=== PATIENT | male | born 1965 | race African-American/Black ===

== ENCOUNTER 2016-06-11 11:48 | Observation (INO) | payer OTHER ==
--- NOTE | 2016-06-11 12:22 | CPEKG ---
Heart Rate: 67 RR Interval: 896 P-R Interval: 172 QRSD Interval: 94 QT Interval: 364 QTC Interval: 385 P [place]: 56 QRS [place]: -34 T Wave [place]: 13 EKG Severity - ABNORMAL ECG - EKG Impression: SINUS RHYTHM EKG Impression: LEFT AXIS DEVIATION EKG Impression: ANTERIOR INFARCT, OLD Electronically Signed By: Shima Branham 11-Jun-2016 14:37:56
[2016-06-11 12:56] LABS: ADD DIFF? NO; ADD MORPH? NO; ADD SCAN? NO; ATYPICAL LYMPHOCYTE FLAG 0 (0-99); FRAGMENT RBC FLAG 0 (0-99); HEMATOCRIT 46.2 % (40.0-51.0); HEMOGLOBIN 15.2 g/dL (13.7-17.5); LEFT SHIFT FLG 0 (0-99); LIPEMIA HEMOLYSIS FLAG 80 (0-99); MEAN CELL HEMOGLOBIN 29.6 pg (27.9-34.1); MEAN CELL HEMOGLOBIN CONCENTR. 32.9 g/dL (32.4-36.7); MEAN CELL VOLUME 90.1 fL (81.5-99.8); MEAN PLATELET VOLUME 9.9 fL (8.7-11.7); PLATELET CLUMPS FLAG 0 (0-99); PLATELET COUNT 242 10^3/uL (150-400); RED BLOOD CELL COUNT 5.13 10^6/uL (4.40-6.38); RED CELL DISTRIBUTION WIDTH 12.5 % (11.5-15.2)
[2016-06-11 13:04] LABS: ANION GAP 13 mEq/L (8-16); CALCIUM 10.3 mg/dL (8.5-10.4); CARBON DIOXIDE 27 mEq/l (22-31); CHLORIDE 103 mEq/L (97-110); CREATININE 1.3 mg/dL (0.7-1.3); GLOMERULAR FILTRATION RATE 58; GLUCOSE 92 mg/dL (70-100); POTASSIUM 4.2 mEq/L (3.5-5.2); SODIUM 143 mEq/L (134-144)
[2016-06-11 13:14] LABS: TROPONIN I < 0.012 ng/mL (0-0.034)
--- NOTE | 2016-06-11 13:15 | EDPHY ---
H & P Time Seen by Provider: 06/11/16 12:21 HPI/ROS: CHIEF COMPLAINT: Left-sided chest pain HISTORY OF PRESENT ILLNESS: 51-year-old male presents with left-sided chest pain. Onset chest pain and 11:00 a.m. while he was sitting in court. Pain is moderate and increases with deep inspiration. Associated with shortness of breath and diaphoresis. Nitroglycerin x1 without relief. Prior treadmill test reportedly abnormal. He has a 3 year history of intermittent chest pain, diagnosed as angina at the custodial. He usually takes nitroglycerin, which occasionally helps the pain. Prior trials of Zantac have not helped. He has 2- 3 episodes of chest pain every month. The chest pain tends to occur randomly and not especially with exertion. Cardiac risk factors negative. Nonsmoker; no family history; no hypertension, diabetes or hypercholesterolemia. REVIEW OF SYSTEMS: Constitutional: No fever, no chills Eyes: No visual changes ENT: No sore throat Respiratory: No cough, no shortness of breath Gastrointestinal: No nausea, no vomiting, no abdominal pain Genitourinary: no dysuria Musculoskeletal: No leg pain or swelling Skin: No rash Neurological: No headache, no weakness Psychiatric: No depression Past Medical/Surgical History: Angina Social History: in custodial for 3 years Smoking Status: Never smoked Physical Exam: General Appearance: Alert, calm and cooperative Eyes: Pupils equal and round, no conjunctival pallor or injection ENT, Mouth: Mucous membranes moist Neck: Normal inspection Respiratory: no chest wall tenderness, Lungs are clear to auscultation Cardiovascular: Regular rate and rhythm Gastrointestinal: Abdomen is soft and nontender Neurological: A&O, nonfocal, normal gait Skin: Warm and dry, no rash Extremities: Nontender, no pedal edema Psychiatric: Mood and affect normal Constitutional: Initial Vital Signs Temperature (C) 36.6 C 06/11/16 11:55 Heart Rate 80 06/11/16 11:55 Respiratory Rate 18 06/11/16 11:55 Blood Pressure 144/79 H 06/11/16 11:55 O2 Sat (%) 98 06/11/16 11:55 O2 Delivery Mode Room Air Allergies/Adverse Reactions: No Known Allergies Allergy (Unverified 06/11/16 11:54) Home Medications: Medication Instructions Recorded Nitroglycerin [Nitrostat 0.4 mg 0.4 mg SL Q5M PRN 06/11/16 (*)] Medical Decision Making - Diagnostics EKG Interpretation: EKG interpreted by me reveals normal sinus rhythm, rate 67, slurred upstroke of QRS c/w WPW, poor R-wave progression. ED Course/Re-evaluation: This patient presents with ongoing chest pain, without prior diagnosis of angina. It is unclear whether he actually has true cardiac disease or not. Evaluation in the emergency department is normal, including EKG and initial troponin. Given that his pain started 2 hours ago, I will admit him to the [facility] for further cardiac evaluation. I gave him a GI cocktail which alleviated the pain partially. The hospitalist service was consulted for admission. Differential Diagnosis: Differential diagnosis includes though it is not limited to pneumonia, pneumothorax, pulmonary embolism, aortic dissection, pericarditis, acute coronary syndrome. - Data Points Laboratory Results: Laboratory Results 06/11/16 11:53 06/11/16 11:53 06/11/16 06/11/16 06/11/16 13:18 11:53 11:53 WBC 4.51 10^3/uL 10^3/uL (3.80-9.50) RBC 5.13 10^6/uL 10^6/uL (4.40-6.38) Hgb 15.2 g/dL g/dL (13.7-17.5) Hct 46.2 % % (40.0-51.0) MCV 90.1 fL fL (81.5-99.8) MCH 29.6 pg pg (27.9-34.1) MCHC 32.9 g/dL g/dL (32.4-36.7) RDW 12.5 % % (11.5-15.2) Plt Count 242 10^3/uL 10^3/uL (150-400) MPV 9.9 fL fL (8.7-11.7) Neut % (Auto) 53.9 % % (39.3-74.2) Lymph % (Auto) 37.9 % % (15.0-45.0) [place] % (Auto) 7.8 % % (4.5-13.0) Eos % (Auto) 0.0 % L % (0.6-7.6) Baso % (Auto) 0.4 % % (0.3-1.7) Nucleat RBC Rel Count 0.0 % % (0.0-0.2) Absolute Neuts (auto) 2.43 10^3/uL 10^3/uL (1.70-6.50) Absolute Lymphs (auto) 1.71 10^3/uL 10^3/uL (1.00-3.00) Absolute Monos (auto) 0.35 10^3/uL 10^3/uL (0.30-0.80) Absolute Eos (auto) 0.00 10^3/uL L 10^3/uL (0.03-0.40) Absolute Basos (auto) 0.02 10^3/uL 10^3/uL (0.02-0.10) Absolute Nucleated RBC 0.00 10^3/uL 10^3/uL (0-0.01) Immature Gran % 0.0 % % (0.0-1.1) Immature Gran # 0.00 10^3/uL 10^3/uL (0.00-0.10) D-Dimer 0.27 ug/mLFEU ug/mLFEU (0.00-0.50) Sodium 143 mEq/L mEq/L (134-144) Potassium 4.2 mEq/L mEq/L (3.5-5.2) Chloride 103 mEq/L mEq/L (97-110) Carbon Dioxide 27 mEq/l mEq/l (22-31) Anion Gap 13 mEq/L mEq/L (8-16) BUN 8 mg/dL mg/dL (7-23) Creatinine 1.3 mg/dL mg/dL (0.7-1.3) Estimated GFR 58 Glucose 92 mg/dL mg/dL (70-100) Calcium 10.3 mg/dL mg/dL (8.5-10.4) Troponin I < 0.012 ng/mL ng/mL (0-0.034) NT-Pro-B Natriuret Pep < 11 pg/mL pg/mL (0-125) Lipase 06/11/16 11:30 WBC RBC Hgb Hct MCV MCH MCHC RDW Plt Count MPV Neut % (Auto) Lymph % (Auto) [place] % (Auto) Eos % (Auto) Baso % (Auto) Nucleat RBC Rel Count Absolute Neuts (auto) Absolute Lymphs (auto) Absolute Monos (auto) Absolute Eos (auto) Absolute Basos (auto) Absolute Nucleated RBC Immature Gran % Immature Gran # D-Dimer Sodium Potassium Chloride Carbon Dioxide Anion Gap BUN Creatinine Estimated GFR Glucose Calcium Troponin I NT-Pro-B Natriuret Pep Lipase 89.0 IU/L IU/L (23-300) Medications Given: Discontinued Medications Miscellaneous Medication (Gi Cocktail) 45 ml PO EDNOW ONE Stop: 06/11/16 13:18 Last Admin: 06/11/16 13:40 Dose: 45 ml Departure - Departure Disposition: [facility] Inpatient Acute Clinical Impression: Chest pain Qualifiers: Chest pain type: precordial pain Qualified Code(s): R07.2 - Precordial pain Condition: Good
[2016-06-11] MEDS ORDERED: MAALOX/LIDO/HYOSC GI COCKTAIL 55 ML BOTTLE PO ONE (13:17)
[2016-06-11 14:40] VITALS: BP 121/68; PULSE 76; O2SAT 96
[2016-06-11 14:41] VITALS: RESP 20; TEMP 97.9
[2016-06-11] MEDS ORDERED: NITROGLYCERIN 0.4 MG BTL SL PRN (15:00)
--- NOTE | 2016-06-11 15:07 | PDCPHP ---
History and Physical Chief Complaint: Chest pain - History of Present Illness This is a 51-year-old incarcerated male who presented to the emergency department today with chest pain that began abruptly at around 11:30 a.m. this morning. He was at court this morning when he was sitting down and developed what he describes as a 9/10 sharp stabbing pain over his left chest that radiated to his back. Pain lasted for about 2 hours then resolved. He was given nitroglycerin without improvement. He was given a GI cocktail which he thinks helped. He tells me that the pain is somewhat improved with applying direct pressure to his anterior chest. He denies any exertional chest pain. Pain is also worse with taking deep breaths. He denies any symptoms of reflux. He tells me that he had a treadmill stress test done in 12 below few years ago that was abnormal. Further workup was recommended but has not yet been done. He was given a prescription for nitroglycerin that he takes occasionally for this pain that does not help. He reports having episodes of similar pain a couple times a month. He was recently started on Zantac which she has been taking which has not decreased the number of episodes of his pain. History Information - Allergies/Home Medication List Allergies/Adverse Reactions: No Known Allergies Allergy (Unverified 06/11/16 11:54) Home Medications: Nitroglycerin [Nitrostat 0.4 mg (*)] 0.4 mg SL Q5M PRN 06/11/16 [Last Taken Unknown] I have personally reviewed and updated: family history, medical history, social history, surgical history - Past Medical History no pertinent PMH - Surgical History Reports: no pertinent surgical hx - Family History Positive for: hypertension ( mother from high blood pressure) - Social History Smoking Status: Never smoked Alcohol Use: None Drug Use: None Review of Systems ROS: 10pt was reviewed & negative except for what was stated in HPI & below GEOFFREY Risk Evaluation age greater or equal to 65: no greater or equal to 3 CAD risk factors: no known CAD(stenosis greater or eqaul to 50%): no ASA use in past 7 days: no severe angina(greater or equal to 2 episodes in 24hrs): no EKG ST changes greater or equal to 0.5mm: no positive cardiac marker: no Total Score: 0 GEOFFREY Score: 4.7% risk Physical Exam Temp Pulse Resp BP Pulse Ox 36.6 C 76 20 121/68 H 96 06/11/16 14:40 06/11/16 14:40 06/11/16 14:40 06/11/16 14:40 06/11/16 14:40 Constitutional: no apparent distress, appears nourished, not in pain Eyes: PERRL, anicteric sclera, EOMI Ears, Nose, Mouth, Throat: moist mucous membranes, hearing normal, ears appear normal, no oral mucosal ulcers Cardiovascular: regular rate and rhythym, no murmur, rub, or gallop, other ( mild tenderness to palpation over the left anterior chest wall), No JVD, No edema Respiratory: no respiratory distress, no rales or rhonchi, clear to auscultation Gastrointestinal: normoactive bowel sounds, soft, non-tender abdomen, no palpable masses, No black's sign, No guarding, No rebound Genitourinary: no bladder fullness, no bladder tenderness Skin: warm, normal color, no rashes or abrasions, no fluctuance, no induration, No mottled Musculoskeletal: full muscle strength, no muscle tenderness, normal joint ROM, no joint effusions Neurologic: AAOx3, CN II-XII Intact, No facial droop Psychiatric: interacting appropriately, not anxious, not encephalopathic, thought process linear Lab Data & Imaging Review 06/11/16 11:53 06/11/16 11:53 WBC 4.51 10^3/uL (3.80-9.50) 06/11/16 11:53 RBC 5.13 10^6/uL (4.40-6.38) 06/11/16 11:53 Hgb 15.2 g/dL (13.7-17.5) 06/11/16 11:53 Hct 46.2 % (40.0-51.0) 06/11/16 11:53 MCV 90.1 fL (81.5-99.8) 06/11/16 11:53 MCH 29.6 pg (27.9-34.1) 06/11/16 11:53 MCHC 32.9 g/dL (32.4-36.7) 06/11/16 11:53 RDW 12.5 % (11.5-15.2) 06/11/16 11:53 Plt Count 242 10^3/uL (150-400) 06/11/16 11:53 MPV 9.9 fL (8.7-11.7) 06/11/16 11:53 Neut % (Auto) 53.9 % (39.3-74.2) 06/11/16 11:53 Lymph % (Auto) 37.9 % (15.0-45.0) 06/11/16 11:53 [place] % (Auto) 7.8 % (4.5-13.0) 06/11/16 11:53 Eos % (Auto) 0.0 % (0.6-7.6) L 06/11/16 11:53 Baso % (Auto) 0.4 % (0.3-1.7) 06/11/16 11:53 Nucleat RBC Rel Count 0.0 % (0.0-0.2) 06/11/16 11:53 Absolute Neuts (auto) 2.43 10^3/uL (1.70-6.50) 06/11/16 11:53 Absolute Lymphs (auto) 1.71 10^3/uL (1.00-3.00) 06/11/16 11:53 Absolute Monos (auto) 0.35 10^3/uL (0.30-0.80) 06/11/16 11:53 Absolute Eos (auto) 0.00 10^3/uL (0.03-0.40) L 06/11/16 11:53 Absolute Basos (auto) 0.02 10^3/uL (0.02-0.10) 06/11/16 11:53 Absolute Nucleated RBC 0.00 10^3/uL (0-0.01) 06/11/16 11:53 Immature Gran % 0.0 % (0.0-1.1) 06/11/16 11:53 Immature Gran # 0.00 10^3/uL (0.00-0.10) 06/11/16 11:53 D-Dimer 0.27 ug/mLFEU (0.00-0.50) 06/11/16 13:18 Sodium 143 mEq/L (134-144) 06/11/16 11:53 Potassium 4.2 mEq/L (3.5-5.2) 06/11/16 11:53 Chloride 103 mEq/L (97-110) 06/11/16 11:53 Carbon Dioxide 27 mEq/l (22-31) 06/11/16 11:53 Anion Gap 13 mEq/L (8-16) 06/11/16 11:53 BUN 8 mg/dL (7-23) 06/11/16 11:53 Creatinine 1.3 mg/dL (0.7-1.3) 06/11/16 11:53 Estimated GFR 58 06/11/16 11:53 Glucose 92 mg/dL (70-100) 06/11/16 11:53 Calcium 10.3 mg/dL (8.5-10.4) 06/11/16 11:53 Troponin I < 0.012 ng/mL (0-0.034) 06/11/16 11:53 NT-Pro-B Natriuret Pep < 11 pg/mL (0-125) 06/11/16 11:53 Lipase 89.0 IU/L (23-300) 06/11/16 11:30 Visualized and Interpreted Chest x-ray results: Yes Chest X-Ray results: no infiltrate, normal, normal heart size Visualized and Interpreted EKG results: Yes EKG Interpretation: Positive for: normal sinsus rhythm ( 67 beats per minute), Q waves ( anterior leads). Negative for: ST elevation, ST depression Assessment and Plan Assessment: This is a 51 year old male presenting with chest pain at low risk ( GEOFFREY 0-1) for Acute coronary syndrome. differential diagnosis: Costochondritis versus GERD versus esophageal spasm versus biliary disease versus less likely ACS with reported history of abnormal stress test and q waves on ekg Plan: The patient will be placed in observation due to concerns for Acute Coronary Syndrome. -repeat 6 hour troponin -echo to eval for evidence of prior NH given q waves on ekg -check lfts for evidence of biliary pathology plan -possible dc later today if 6 hour troponin is negative -if echo shows evidence of prior NH would recommend inpatient [facility] given reported history of abnormal treadmill stress test -trial PPI -consider repeat GI cocktail -consider outpatient upper GI to eval for esophageal pathology causing symptoms
[2016-06-11] MEDS ORDERED: ASPIRIN 325 MG TAB PO SCH (15:30)
[2016-06-11] MEDS ORDERED: PANTOPRAZOLE SODIUM 40 MG TAB PO SCH (15:30)
--- NOTE | 2016-06-11 15:44 | ECHO ---
[id number] + + [address] : : [place] [address] : : [phone] + + Adult Echocardiographic Report + --+ :Name: Karthik GALO Date: 06/11/2016 03:26 PM : : Hospital Admission Number: [id number] Location: 1 40: :: 1965 Gender: Male Height: 70 in : :Age: 51 yrs Race: BELKIS Weight: 205 lb : :Reason For Study: Eval LV Fx : : BSA: 2.1 meters2 : :History: Chest Pain : + --+ MMode/2D Measurements \T\ Calculations IVSd: 0.75 cm LVIDd: 4.6 cm FS: 38.9 % Ao root diam: 3.4 cm LVPWd: 0.86 cm LVIDs: 2.8 cm EDV(Teich): 97.3 ml ACS: 2.1 cm ESV(Teich): 29.8 ml EF(Teich): 69.4 % Normal Measurement Values: + + :LVIDd (3.5-5.7cm) IVSd (0.6-1.1cm) LVPWd (0.6-1.1cm) Aortic Root (2.0-3.7cm)Left Atrium (1.5-4.0cm): :LV Vol(d) (76-115ml) LV Vol(s) (29-48ml) Ejec Fraction (50-65%)PV Kemal (0.6- 1.2m/s) TV Kemal (0.4-1.0m/s) : :MV E Kemal (0.8-1.0m/s)MV A Kemal (0.3-1.0m/s)LVOT Kemal (0.7-1.2m/s) Asc Ao Kemal ( 0.9-1.8m/s) : + + Doppler Measurements \T\ Calculations MV E max kemal: Ao V2 max: LV V1 max: PA V2 max: 80.0 cm/sec 114.0 cm/sec 59.7 cm/sec 76.0 cm/sec MV A max kemal: Ao max P.2 mmHg LV V1 max PG: PA max P.7 cm/sec 1.4 mmHg 2.3 mmHg MV E/A: 1.3 Left Ventricle The left ventricle is normal in size and function. There is normal left ventricular wall thickness. The left ventricular ejection fraction is normal. Ejection Fraction = 69%. The left ventricular wall motion is normal. Right Ventricle The right ventricle is normal in size and function. Atria The left atrial size is normal. Right atrial size is normal. Mitral Valve The mitral valve is normal in structure and function. There is no evidence of mitral valve prolapse. There is no mitral valve stenosis. There is no mitral regurgitation noted. Tricuspid Valve Normal tricuspid valve. There is trace tricuspid regurgitation. Right ventricular systolic pressure is normal. Aortic Valve The aortic valve is normal in structure and function. There is no aortic stenosis. There is no aortic insufficiency. Pulmonic Valve The pulmonic valve is normal in structure and function. There is no pulmonic valvular regurgitation. Great Vessels The aortic root is normal size. Pericardium/Pleural There is no pericardial effusion. Conclusion A complete two-dimensional transthoracic echocardiogram was performed (2D, M-mode, Doppler and color flow Doppler). The left ventricle is normal in size and function. The left ventricular ejection fraction is normal. Ejection Fraction = 69%. The left ventricular wall motion is normal. The right ventricle is normal in size and function. The left atrial size is normal. The mitral valve is normal in structure and function. The aortic valve is normal in structure and function. Normal tricuspid valve There is trace tricuspid regurgitation. Right ventricular systolic pressure is normal. There is no pericardial effusion. Final Reading Physician: Lyla Strauss signed on 06/11/2016 03:43 PM Ordering Physician: Cheko Estevez Performed By: Jose Mendez, ANGELCS
[2016-06-11 16:32] LABS: ALBUMIN 5.3 g/dL (3.5-5.0); ALKALINE PHOSPHATASE 183 IU/L (38-126); ASPARTATE AMINOTRANSFERASE 98 IU/L (17-59); BILIRUBIN,TOTAL 2.2 mg/dL (0.1-1.4); BILIRUBIN-CONJUGATED 1.3 mg/dL (0.0-0.5); BILIRUBIN-UNCONJUGATED 0.9 mg/dL (0.0-1.1); TOTAL PROTEIN 9.8 g/dL (6.3-8.2)
[2016-06-11 16:54] LABS: ALANINE AMINOTRANSFERASE < 6 IU/L (21-72)
--- NOTE | 2016-06-12 04:44 | GDS ---
DISCHARGE DIAGNOSIS: Atypical chest pain. Suspect biliary colic. HOSPITAL COURSE BY PROBLEM: Atypical chest pain: The patient presented to the emergency department with chest pain that has been going on for months, that happens at rest. It is not associated with exertion or eating. The patient was placed on observation where we did a 6 hour troponin that was negative. We also did an echocardiogram to evaluate for wall motion abnormalities, given the Q-waves noted on his EKG. H is echocardiogram revealed a normal heart function, with no wall motion abnormalities or evidence of prior PR. The ejection fraction was 69%. To further workup his chest pain, a lipase was done that was negative. LFTs were drawn after he arr ived in the observation unit and were abnormal, with an AST of 98 and a low ALT, but with elevated t otal bilirubin of 2.2, and conjugated bilirubin of 1.3. The patient has been afebrile. He does not have a white count. He has negative Lares sign. DISCHARGE INSTRUCTIONS: At this time, I think it is unlikely that his pain represents acute coronar y syndrome. I suspect his pain is biliary in etiology. We attempted to do an abdominal ultrasound this evening but this was unobtainable since patient has eaten. His pain has currently subsided and is resolved. At this point, the patient plans to return back to long term where he will need further fo llow up with abdominal ultrasound. The patient was counseled to seek medical attention if he develo ps recurrent pain, especially if this happens in the setting of fever. It would also be prudent for him to have an outpatient stress test. However, I do think that a cardiac explanation for his pain is less likely. If his gallbladder workup is negative, it would be reasonable to pursue esophageal spasm as possible cause for his recurrent chest pain. /[id number]
== END 2016-06-11 20:00 ==
LOC: EDUNIT# → F1N 14:32
PROVIDERS: ADMIT Family Medicine; ATTEND Family Medicine
DX: R07.89 Other chest pain (principal); Z82.49 Family history of ischemic heart disease and other diseases of the circulatory system
CPT/HCPCS: 71020; 93005; 93306; G0378